=== PATIENT | male | born 2000 | race Caucasian/White ===

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

== ENCOUNTER 2022-04-04 21:17 | Emergency (ER) | payer SELFPAY ==
--- NOTE | 2022-04-04 22:33 | NUR ---
CALLED TO TRIAGE FROM LOBBY AND OUTSIDE, NO ANSWER.
--- NOTE | 2022-04-04 22:35 | NUR ---
[facility] CELL PHONE, NO ANSWER.
== END 2022-04-04 22:35 | disposition left against medical advice (07) ==
LOC: MED 21:17
DX: M25.512 Pain in left shoulder (principal); Z53.21 Procedure and treatment not carried out due to patient leaving prior to being seen by health care provider

== ENCOUNTER 2022-04-11 16:48 | Emergency (ER) | payer SELFPAY ==
[~2022-04-11] VITALS: Ht 182.9 cm; Wt 134.3 kg
[2022-04-11 17:02] VITALS: BP 163/91
--- NOTE | 2022-04-11 21:10 | NUR ---
Patient taken to Chair C.
--- NOTE | 2022-04-11 21:14 | NUR ---
Dr. Farley examining patient.
[2022-04-11] MEDS ORDERED: ACET-10509 PO (21:24)
[2022-04-11 21:51] VITALS: BP 132/78
== END 2022-04-11 21:51 | disposition home or self-care (01) ==
LOC: MED 16:48
DX: S43.402A Unspecified sprain of left shoulder joint, initial encounter (principal); X58.XXXA Exposure to other specified factors, initial encounter; Y93.89 Activity, other specified; Y92.89 Other specified places as the place of occurrence of the external cause; Y99.8 Other external cause status
CPT/HCPCS: 73030; 99283